=== PATIENT | male | born 1995 | race Caucasian/White ===

== ENCOUNTER 2018-06-13 06:23 | Inpatient (IN) | payer MEDICAID, OTHER ==
[~2018-06-13] VITALS: Ht 190.5 cm; Wt 84.6 kg
[2018-06-13] MEDS ORDERED: LAMO25 PO (06:58)
[2018-06-13] MEDS ORDERED: OLAN2.5T3 PO (06:58)
[2018-06-13 07:27] LABS: BASOPHILS % (AUTO) 0.3 % (0.0-2.0); EOSINOPHILS % (AUTO) 0.7 % (1.0-6.0); HEMATOCRIT 43.7 % (41-53); HEMOGLOBIN 15.5 g/dL (13.5-17.5); LYMPHOCYTES # (AUTO) 1.7 K/uL (1.0-4.8); LYMPHOCYTES % (AUTO) 21.5 % (22.0-44.0); MEAN CORPUSCULAR HEMOGLOBIN 30.5 pg (26.0-34.0); MEAN CORPUSCULAR HGB CONC 35.4 G/dL (31.0-37.0); MEAN CORPUSCULAR VOLUME 86 fL (80-100); MONOCYTES # (AUTO) 0.6 K/uL (0.1-1.0); MONOCYTES % (AUTO) 7.5 % (2.0-9.0); NEUTROPHILS # (AUTO) 5.5 K/uL (1.8-7.7); PLATELET COUNT (AUTO) 253 K/uL (150-450); RED BLOOD CELL COUNT(AUTO) 5.06 MIL/uL (4.50-5.90)
[2018-06-13 07:44] LABS: ANION GAP 13 mmol/L (8-16); CALCIUM, TOTAL 9.1 mg/dL (8.8-10.5); CARBON DIOXIDE 24 mmol/L (22-29); CHLORIDE 104 mmol/L (98-107); CREATININE 0.73 mg/dL (0.60-1.30); GLOMERULAR FILTR. RATE CALC > 60 mL/min (>60); GLUCOSE,RANDOM 104 mg/dL (70-110); POTASSIUM 3.5 mmol/L (3.5-5.1); SODIUM SERUM 141 mmol/L (136-145); UREA NITROGEN, BLOOD 7 mg/dL (7-18)
[2018-06-13 07:49] LABS: ALANINE AMINOTRANSFERASE 46 U/L (12-78); ALBUMIN 4.2 g/dL (3.4-5.0); ALKALINE PHOSPHATASE 62 U/L (46-116); ASPARTATE AMINOTRANSFERASE 27 U/L (15-37); BILIRUBIN,TOTAL 0.6 mg/dL (0.1-1.0); TOTAL PROTEIN, SERUM 7.1 g/dL (6.4-8.2)
[2018-06-13 08:27] LABS: AMPHET/METH SCREEN,URINE NEGATIVE (NEGATIVE); BARBITURATE SCREEN, URINE NEGATIVE (NEGATIVE); BENZODIAZEPINES SCREEN,URINE NEGATIVE (NEGATIVE); CANNABINOID SCREEN,URINE POSITIVE (NEGATIVE); COCAINE SCREEN,URINE NEGATIVE (NEGATIVE); METHADONE SCREEN, URINE NEGATIVE (NEGATIVE); OPIATE SCREEN,URINE NEGATIVE (NEGATIVE)
[2018-06-13 08:30] LABS: PHENCYCLIDINE SCREEN,URINE NEGATIVE (NEGATIVE)
[2018-06-13] MEDS ORDERED: MAG HYDROX/AL HYDROX/SIMETH ES 30 ML SUSPENSION UDCUP PO PRN (11:15)
[2018-06-13] MEDS ORDERED: HydrOXYzine PAMOATE 50 MG CAPSULE PO PRN (11:15)
[2018-06-13] MEDS ORDERED: LORazepam 2 MG TABLET PO PRN (11:15)
[2018-06-13] MEDS ORDERED: ZOLPIDEM TARTRATE 10 MG TABLET PO PRN (11:15)
[2018-06-13] MEDS ORDERED: GuaiFENesin/D-METHORPHAN [SUGAR-FREE] 200-20MG/10 ML SYRUP UDCUP PO PRN (11:15)
[2018-06-13] MEDS ORDERED: PROMETHAZINE HCL 25 MG TABLET PO PRN (11:15)
[2018-06-13] MEDS ORDERED: TUBERCULIN, PURIFIED PROTEIN DERIVATIVE 5 TU/0.1 ML SYG ID ONE (11:15)
[2018-06-13] MEDS ORDERED: OLANZapine 5 MG RAPDIS TABLET PO PRN (11:15)
[2018-06-13] MEDS ORDERED: ACETAMINOPHEN 325 MG TABLET PO PRN (11:15)
[2018-06-13] MEDS ORDERED: MAGNESIUM HYDROXIDE SUSPENSION 30 ML UDCUP PO PRN (11:15)
[2018-06-13] MEDS ORDERED: LOPERAMIDE HCL 2 MG CAPSULE PO PRN (11:15)
[2018-06-13] MEDS ORDERED: QUEtiapine FUMARATE 100 MG TABLET PO PRN (12:00)
[2018-06-13] MEDS: NICOTINE 21 MG/24 HOUR PATCH TD SCH (14:48)
[2018-06-13 16:12] VITALS: BP 137/81
[2018-06-13] MEDS: THIAMINE HCL 100 MG TABLET PO SCH (16:43)
[2018-06-13] MEDS: DIVALPROEX SODIUM 500 MG ER TABLET PO SCH (20:37)
[2018-06-13] MEDS: QUEtiapine FUMARATE 200 MG TABLET PO SCH (20:38)
[2018-06-13] MEDS ORDERED: OLANZapine 5 MG RAPDIS TABLET PO SCH (21:00)
[2018-06-14 00:48] VITALS: BP 109/62
[2018-06-14 08:32] VITALS: BP 126/72
[2018-06-14 08:56] LABS: BASOPHILS % (AUTO) 0.4 % (0.0-2.0); EOSINOPHILS % (AUTO) 3.2 % (1.0-6.0); HEMATOCRIT 45.4 % (41-53); HEMOGLOBIN 16.2 g/dL (13.5-17.5); LYMPHOCYTES # (AUTO) 2.3 K/uL (1.0-4.8); LYMPHOCYTES % (AUTO) 39.6 % (22.0-44.0); MEAN CORPUSCULAR HEMOGLOBIN 30.6 pg (26.0-34.0); MEAN CORPUSCULAR HGB CONC 35.6 G/dL (31.0-37.0); MEAN CORPUSCULAR VOLUME 86 fL (80-100); MONOCYTES # (AUTO) 0.7 K/uL (0.1-1.0); MONOCYTES % (AUTO) 11.1 % (2.0-9.0); NEUTROPHILS # (AUTO) 2.7 K/uL (1.8-7.7); NEUTROPHILS % (AUTO) 45.7 % (40.0-70.0); PLATELET COUNT (AUTO) 255 K/uL (150-450); RED BLOOD CELL COUNT(AUTO) 5.29 MIL/uL (4.50-5.90); RED CELL DISTRIBUTION WIDTH 13.1 % (11.5-14.5)
[2018-06-14] MEDS: THIAMINE HCL 100 MG TABLET PO SCH ×2 (08:57→16:33)
[2018-06-14] MEDS: NALTREXONE HCL 50 MG TABLET PO SCH (08:57)
[2018-06-14] MEDS: FOLIC ACID 1 MG TABLET PO SCH (08:57)
[2018-06-14] MEDS: MULTIVITAMINS WITH MINERALS, THERAPEUTIC TABLET PO SCH (08:57)
[2018-06-14] MEDS: NICOTINE 21 MG/24 HOUR PATCH TD SCH (08:58)
[2018-06-14] MEDS ORDERED: LamoTRIgine 25 MG TABLET PO SCH (09:00)
[2018-06-14 09:35] LABS: ALANINE AMINOTRANSFERASE 49 U/L (12-78); ALBUMIN 4.1 g/dL (3.4-5.0); ALKALINE PHOSPHATASE 60 U/L (46-116); ANION GAP 10 mmol/L (8-16); ASPARTATE AMINOTRANSFERASE 33 U/L (15-37); BILIRUBIN,TOTAL 0.6 mg/dL (0.1-1.0); CALCIUM, TOTAL 9.2 mg/dL (8.8-10.5); CARBON DIOXIDE 27 mmol/L (22-29); CHLORIDE 104 mmol/L (98-107); CHOLESTEROL 98 mg/dL (131-200); FREE T4 (FREE THYROXINE) 1.07 ng/dL (0.76-1.46); GLOMERULAR FILTR. RATE CALC > 60 mL/min (>60); GLUCOSE,RANDOM 79 mg/dL (70-110); HDL CHOLESTEROL 33 mg/dL (40-60); LDL CHOL (CALC.) 53 mg/dL (0-130); POTASSIUM 4.1 mmol/L (3.5-5.1); SODIUM SERUM 141 mmol/L (136-145); THYROID STIMULATING HORMONE 0.85 uIU/mL (0.36-3.74); TOTAL PROTEIN, SERUM 7.3 g/dL (6.4-8.2); TRIGLYCERIDES 60 mg/dL (15-150); UREA NITROGEN, BLOOD 12 mg/dL (7-18)
[2018-06-14 09:39] LABS: HEMOGLOBIN A1C 5.3 % (4.5-6.2)
[2018-06-14] MEDS ORDERED: NALT50TA PO (14:38)
[2018-06-14 16:25] VITALS: BP 128/79
[2018-06-14] MEDS: DIVALPROEX SODIUM 500 MG ER TABLET PO SCH (20:14)
[2018-06-14] MEDS: QUEtiapine FUMARATE 200 MG TABLET PO SCH (20:15)
[2018-06-15 01:03] VITALS: BP 110/70
[2018-06-15] MEDS: NICOTINE 21 MG/24 HOUR PATCH TD SCH (08:57)
[2018-06-15] MEDS: NALTREXONE HCL 50 MG TABLET PO SCH (09:00)
[2018-06-15] MEDS: FOLIC ACID 1 MG TABLET PO SCH (09:00)
[2018-06-15] MEDS: MULTIVITAMINS WITH MINERALS, THERAPEUTIC TABLET PO SCH (09:00)
[2018-06-15] MEDS: THIAMINE HCL 100 MG TABLET PO SCH (09:00)
[2018-06-15] MEDS ORDERED: NALT50TA6 PO (09:11)
[2018-06-15 09:42] VITALS: BP 125/68
== END 2018-06-15 13:50 | disposition left against medical advice (07) | DRG 753 ==
LOC: EMS 06:24 → B2S 10:30
PROVIDERS: ADMIT Psychiatry & Neurology Psychiatry; ATTEND Psychiatry & Neurology Psychiatry
DX: F31.5 Bipolar disorder, current episode depressed, severe, with psychotic features (principal); Z91.19 Patient's noncompliance with other medical treatment and regimen; R45.851 Suicidal ideations; F12.90 Cannabis use, unspecified, uncomplicated; F17.210 Nicotine dependence, cigarettes, uncomplicated; I10 Essential (primary) hypertension; F41.9 Anxiety disorder, unspecified; Z53.21 Procedure and treatment not carried out due to patient leaving prior to being seen by health care provider; Z79.899 Other long term (current) drug therapy
CPT/HCPCS: 83036; 84439; 84443; 86592; G0480

== ENCOUNTER 2019-02-12 02:46 | Inpatient (IN) | payer MEDICAID ==
[~2019-02-12] VITALS: Ht 193 cm; Wt 73.0 kg
[~2019-02-12 02:46] MED LIST: NALT50TA PO; NALT50TA6 PO
[2019-02-12] MEDS ORDERED: ZOLPIDEM TARTRATE 10 MG TABLET PO PRN (03:30)
[2019-02-12] MEDS ORDERED: QUEtiapine FUMARATE 100 MG TABLET PO PRN (03:30)
[2019-02-12] MEDS ORDERED: OLANZapine 5 MG RAPDIS TABLET PO PRN (03:30)
[2019-02-12] MEDS ORDERED: NICOTINE 14 MG/24 HOUR PATCH TD PRN (08:00)
[2019-02-12] MEDS ORDERED: DOCUSATE SODIUM 100 MG CAPSULE PO PRN (08:00)
[2019-02-12] MEDS ORDERED: MAGNESIUM HYDROXIDE SUSPENSION 30 ML UDCUP PO PRN (08:00)
[2019-02-12] MEDS ORDERED: ACETAMINOPHEN 325 MG TABLET PO PRN (08:00)
[2019-02-12] MEDS ORDERED: IBUPROFEN 400 MG TABLET PO PRN (08:00)
[2019-02-12] MEDS ORDERED: PETROLATUM,WHITE 28 GM JELLY TP PRN (08:00)
[2019-02-12] MEDS ORDERED: GuaiFENesin/D-METHORPHAN [SUGAR-FREE] 200-20MG/10 ML SYRUP UDCUP PO PRN (08:00)
[2019-02-12] MEDS ORDERED: ALBUTEROL SULFATE HFA 90 MCG/PUFF 8 GM INHALER IH PRN (08:00)
[2019-02-12] MEDS ORDERED: ONDANSETRON HCL 4 MG TABLET PO PRN (08:00)
[2019-02-12] MEDS ORDERED: MAG HYDROX/AL HYDROX/SIMETH ES 30 ML SUSPENSION UDCUP PO PRN (08:00)
[2019-02-12] MEDS ORDERED: LOPERAMIDE HCL 2 MG CAPSULE PO PRN (08:00)
[2019-02-12] MEDS ORDERED: CloNIDine HCL 0.1 MG TABLET PO PRN (08:00)
[2019-02-12 08:33] VITALS: BP 131/87
[2019-02-12] MEDS: DIVALPROEX SODIUM 500 MG DR TABLET PO SCH ×2 (10:12→20:20)
[2019-02-12] MEDS: QUEtiapine FUMARATE 100 MG TABLET PO SCH ×2 (10:12→20:20)
[2019-02-12] MEDS: NICOTINE 14 MG/24 HOUR PATCH TD SCH (10:28)
[2019-02-12] MEDS: BISACODYL 5 MG EC TABLET PO PRN ×2 (12:39→19:40)
[2019-02-12] MEDS ORDERED: BISACODYL 5 MG EC TABLET PO PRN (14:15)
[2019-02-12 16:00] VITALS: BP 110/64
[2019-02-13 06:20] VITALS: BP 108/70
[2019-02-13 08:07] VITALS: BP 115/66
[2019-02-13 08:12] LABS: BASOPHILS % (AUTO) 0.6 % (0.0-2.0); EOSINOPHILS % (AUTO) 8.1 % (1.0-6.0); HEMATOCRIT 43.7 % (41-53); HEMOGLOBIN 15.1 g/dL (13.5-17.5); LYMPHOCYTES # (AUTO) 1.5 K/uL (1.0-4.8); LYMPHOCYTES % (AUTO) 41.3 % (22.0-44.0); MEAN CORPUSCULAR HEMOGLOBIN 31.2 pg (26.0-34.0); MEAN CORPUSCULAR HGB CONC 34.6 G/dL (31.0-37.0); MEAN CORPUSCULAR VOLUME 90 fL (80-100); MONOCYTES # (AUTO) 0.4 K/uL (0.1-1.0); MONOCYTES % (AUTO) 11.1 % (2.0-9.0); NEUTROPHILS # (AUTO) 1.4 K/uL (1.8-7.7); NEUTROPHILS % (AUTO) 38.9 % (40.0-70.0); PLATELET COUNT (AUTO) 289 K/uL (150-450); RED BLOOD CELL COUNT(AUTO) 4.84 MIL/uL (4.50-5.90); RED CELL DISTRIBUTION WIDTH 13.4 % (11.5-14.5)
[2019-02-13 08:23] LABS: HEMOGLOBIN A1C 5.1 % (4.5-6.2)
[2019-02-13] MEDS: DIVALPROEX SODIUM 500 MG DR TABLET PO SCH ×2 (08:25→20:11)
[2019-02-13] MEDS: QUEtiapine FUMARATE 100 MG TABLET PO SCH ×2 (08:25→20:11)
[2019-02-13 08:50] LABS: ALANINE AMINOTRANSFERASE 40 U/L (12-78); ALBUMIN 3.4 g/dL (3.4-5.0); ALKALINE PHOSPHATASE 62 U/L (46-116); ANION GAP 7 mmol/L (8-16); ASPARTATE AMINOTRANSFERASE 30 U/L (15-37); BILIRUBIN,TOTAL 0.4 mg/dL (0.1-1.0); CALCIUM, TOTAL 8.9 mg/dL (8.8-10.5); CARBON DIOXIDE 28 mmol/L (22-29); CHLORIDE 104 mmol/L (98-107); CHOL/HDL RATIO 2.8 (4.2-7.3); CHOLESTEROL 128 mg/dL (131-200); CREATININE 0.65 mg/dL (0.60-1.30); FREE T4 (FREE THYROXINE) 1.06 ng/dL (0.76-1.46); GLOMERULAR FILTR. RATE CALC > 60 mL/min (>60); GLUCOSE,RANDOM 90 mg/dL (70-110); HDL CHOLESTEROL 46 mg/dL (40-60); LDL CHOL (CALC.) 76 mg/dL (0-130); POTASSIUM 4.4 mmol/L (3.5-5.1); SODIUM SERUM 139 mmol/L (136-145); THYROID STIMULATING HORMONE 0.65 uIU/mL (0.36-3.74); TOTAL PROTEIN, SERUM 6.3 g/dL (6.4-8.2); TRIGLYCERIDES 31 mg/dL (15-150); UREA NITROGEN, BLOOD 15 mg/dL (7-18)
[2019-02-13] MEDS: NICOTINE 14 MG/24 HOUR PATCH TD SCH (09:07)
[2019-02-13 16:09] VITALS: BP 117/68
[2019-02-13] MEDS: LORazepam 1 MG TABLET PO PRN (19:25)
[2019-02-14 08:13] VITALS: BP 110/64
[2019-02-14] MEDS: DIVALPROEX SODIUM 500 MG DR TABLET PO SCH ×2 (08:34→20:12)
[2019-02-14] MEDS: QUEtiapine FUMARATE 100 MG TABLET PO SCH ×2 (08:34→20:12)
[2019-02-14] MEDS: NICOTINE 14 MG/24 HOUR PATCH TD SCH (08:35)
[2019-02-14 16:00] VITALS: BP 118/67
[2019-02-14] MEDS: LORazepam 1 MG TABLET PO PRN (18:05)
[2019-02-15] MEDS: QUEtiapine FUMARATE 100 MG TABLET PO SCH ×2 (08:11→20:48)
[2019-02-15] MEDS: NICOTINE 14 MG/24 HOUR PATCH TD SCH (08:11)
[2019-02-15] MEDS: DIVALPROEX SODIUM 500 MG DR TABLET PO SCH ×2 (08:11→20:48)
[2019-02-15 08:49] VITALS: BP 131/88
[2019-02-15] MEDS: LORazepam 1 MG TABLET PO PRN ×2 (11:00→17:00)
[2019-02-15 16:00] VITALS: BP 110/76
[2019-02-16 08:19] VITALS: BP 119/69
[2019-02-16] MEDS: NICOTINE 14 MG/24 HOUR PATCH TD SCH (09:00)
[2019-02-16] MEDS: QUEtiapine FUMARATE 100 MG TABLET PO SCH (09:51)
[2019-02-16] MEDS: DIVALPROEX SODIUM 500 MG DR TABLET PO SCH (09:51)
[2019-02-16] MEDS ORDERED: QUET100T PO (13:33)
[2019-02-16] MEDS ORDERED: DIVA-78 PO (13:33)
== END 2019-02-16 14:07 | disposition home or self-care (01) | DRG 750 ==
LOC: B3A 03:37
PROVIDERS: ATTEND Psychiatry & Neurology Child & Adolescent Psychiatry
DX: F20.0 Paranoid schizophrenia (principal); Z59.0 Homelessness; D72.819 Decreased white blood cell count, unspecified; F10.10 Alcohol abuse, uncomplicated; F41.9 Anxiety disorder, unspecified; K59.00 Constipation, unspecified; Y90.9 Presence of alcohol in blood, level not specified; R53.83 Other fatigue
CPT/HCPCS: 83036; 84439; 84443